=== PATIENT | male | born 1990 | race Two or more races ===

== ENCOUNTER 2022-01-16 21:42 | Emergency (ER) | payer MEDICAID, OTHER ==
[~2022-01-16] VITALS: Ht 177.8 cm; Wt 84.0 kg
[2022-01-16] MEDS ORDERED: HYDROmorphone HCL 2 MG/ML VL/or syr IV ONE (22:00)
[2022-01-16] MEDS ORDERED: TETANUS-DIPTH-ACEL PERTUSSIS 0.5ML SYR Tdap IM ONE (22:00)
[2022-01-16] MEDS ORDERED: SODIUM CHLORIDE 0.9% 1,000 ML IV ONE (22:00)
[2022-01-16] MEDS ORDERED: ceFAZolin 1GM/50ML 100 ML IV ONE (22:00)
[2022-01-16] MEDS ORDERED: ONDANSETRON HCL 4 MG/2 ML VIAL IV ONE (22:00)
[2022-01-16] MEDS ORDERED: IOHEXOL 300 MG/ML 100ML BOTTLE IJ ONE (22:09)
[2022-01-16 22:46] LABS: Basophils # (auto) 0 10 ^3/uL (0-0.2); Basophils % (auto) 0.8 % (0.0-2.0); Eosinophils # (auto) 0.1 10 ^3/uL (0-0.8); Eosinophils % (auto) 1.3 % (0.0-7.0); Hematocrit 41.2 % (41.0-53.0); Hemoglobin 13.5 g/dL (13.5-17.5); Lymphocytes # (auto) 1.9 10 ^3/uL (0.4-5.4); Lymphocytes % (auto) 30.2 % (10.0-50.0); Mean Corpuscular Hgb Conc. 32.9 g/dL (32.0-36.0); Mean Corpuscular Volume 94.2 fL (80.0-100.0); Monocytes # (auto) 0.5 10 ^3/uL (0-1.3); Monocytes % (auto) 8.3 % (0.0-12.0); Neutrophils # (auto) 3.7 10 ^3/uL (1.6-8.6); Neutrophils % (auto) 59.4 % (37.0-80.0); Red Blood Cells 4.37 10^6/uL (4.5-5.90); Red Cell Distribution Width 13.1 % (11.8-14.3); White Blood Cell 6.2 10^3/uL (4.4-10.8)
[2022-01-16 23:03] LABS: Albumin 3.9 g/dL (3.4-5.0); Calcium 8.8 mg/dL (8.5-10.1); Potassium 3.5 mmol/L (3.5-5.1)
[2022-01-16 23:06] LABS: Bilirubin, Total 0.6 mg/dL (0.2-1.0); Total Protein 7.4 g/dL (6.4-8.2)
[2022-01-16 23:52] VITALS: BP 115/50
== END 2022-01-17 00:53 | disposition short-term general hospital (02) ==
LOC: ER 21:42
DX: S31.133A Puncture wound of abdominal wall without foreign body, right lower quadrant without penetration into peritoneal cavity, initial encounter (principal); W34.09XA Accidental discharge from other specified firearms, initial encounter; Y93.89 Activity, other specified; Y92.89 Other specified places as the place of occurrence of the external cause; Y99.8 Other external cause status
CPT/HCPCS: 36415; 71260; 74177; 80053; 84484; 85025; 86850; 86900; 86901; 90471; 90715; 93005; 96365; 96375; 99285; J0690; J1170; J2405; J7030; Q9967